=== PATIENT | female | born 1960 | race Caucasian/White ===

== ENCOUNTER → 2018-03-22 07:26 | Outpatient (CLI) | payer BC, SELFPAY ==
--- NOTE | 2018-03-22 08:20 | BRBX_PTH ---
PATIENT: CALI CHOWDHURY LOC: [facility] U#:[id number] AGE/SX: 64/F ROOM: RE03/22/[address]: Dr. Shivani Low MD : [id number] BED: DIS: SPEC #: [id number] RECD: 03/22/18 09:08 STATUS: SELMA MARIA D #: [id number] LEAH: 03/22/18 08:[address]: Shivani Low DEPT: SURGICAL PATHOLOGY RECD BY: Gerard Kaba Tissues: Right breast, NOS Procedures: Surgery Specimen Level IV HEADER OPERATION: Right breast stereotactic biopsy PRE-OP DIAGNOSIS: Calcifications right breast TISSUE SUBMITTED: Right breast tissue ISCHEMIC TIME: 2 minutes FIXATION TIME: 11 hours MICROSCOPIC DIAGNOSIS Right breast, stereotactic core biopsy: Involutional change and collagenized stroma. Benign ductal ectasia. Banal microcalcifications. No evidence of malignancy. AM:valery 03/23/18 COMMENT Case has been reviewed in consultation with Dr. Rainey who concurs with the above diagnosis. IDC:SJ MICROSCOPIC DESCRIPTION Slides are reviewed. GROSS DESCRIPTION Received is one container labeled with the patient's name and not further designated. The specimen consists of multiple elongated fragments of lawson-yellow fibroadipose tissue that in aggregate measure 5 x 3 x 0.3 cm. The entire specimen is submitted in two cassettes. / JUAN CARLOS:valery 03/22/18 TC:5 CPT: 15076
--- NOTE | 2018-03-22 09:00 | PCM.OPRPT ---
Report of Operation Date of Procedure: 03/22/18 Pre-Operative Diagnosis: abnormal calcifications on right breast mammograms Post-Operative Diagnosis: same Surgery/Procedure Performed:: right stereotactic breast biopsy Description of Surgical Findings:: calcifications in right breast mammograms Type of Anesthesia:: Local - 1% xylocaine Specimen's removed: right breast tissue Estimated Blood Loss (mL): < 1 Fluids Replaced: none Description of Procedure: After informed consent was given, the patient was brought into the breast biopsy suite. Appropriate time out protocol was followed. She was then placed in the prone position on the stereotactic biopsy table. The patient?s right breast was then placed in the opening at the head of the table. A managed care coordinator compression mammogram was then obtained in the CC view. The suspicious radiological lesion was then identified. It was in the upper outer quadrant of the patient's right breast. Stereo pictures of the lesion were then taken for XYZ coordinates. The Mammotome biopsy stylus was then positioned where it would be entering into the patient?s breast. The skin at this site was then cleansed with a surgical skin preparation. The skin and subcutaneous tissues at this site were then infiltrated with 1% xylocaine. A small skin incision was made with an 11 blade scalpel. The biopsy stylus was then positioned into the patient?s breast at the proper coordinates of depth. Using the Mammotome vacuum-assist device, several core samples of breast tissue were obtained. A specimen mammogram was the obtained and revealed that the calcifications are within the specimen. A hemostatic marker clip was then placed into the biopsy cavity and a managed care coordinator film revealed that it was properly deployed. The patient was then placed in the supine position and pressure was applied to the breast until no active bleeding was noted. Steristrips were applied to reapproximate the skin. A unilateral mammogram in the CC and MLO view were then taken which revealed that the marker clip was in the same area as the previous suspicious lesion. The patient tolerated the procedure well and was discharged from the breast biopsy suite in good condition. - Complications none noted
== END ==
PROVIDERS: Visit Provider Surgery
DX: N60.41 Mammary duct ectasia of right breast (principal); R92.0 Mammographic microcalcification found on diagnostic imaging of breast; K21.9 Gastro-esophageal reflux disease without esophagitis; Z79.82 Long term (current) use of aspirin; Z79.84 Long term (current) use of oral hypoglycemic drugs; Z79.899 Other long term (current) drug therapy
CPT/HCPCS: 19081; 88305; J7050; A4648